=== PATIENT | male | born 1950 ===

== ENCOUNTER 2021-02-22 09:02 | Day surgery (SDC) | payer OTHER ==
[~2021-02-22 09:02] MED LIST: CLONAZEPAM1 MG; CLORAZEPATE D3.75 MG
== END 2021-02-22 13:45 | disposition home or self-care (01) ==
LOC: AMB-ENDOS 09:02
PROVIDERS: ATTEND Surgery
DX: D12.2 Benign neoplasm of ascending colon (principal); Z20.822 Contact with and (suspected) exposure to COVID-19